=== PATIENT | male | born 1955 | race Caucasian/White ===

== ENCOUNTER 2019-05-29 13:27 | Emergency (ER) | payer BC, OTHER ==
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
[2019-06-05 15:37] VITALS: BP 142/69; PULSE 78
== END 2019-05-29 15:15 | disposition home or self-care (01) ==
LOC: DL.ED 13:27
DX: R22.0 Localized swelling, mass and lump, head (principal); L53.9 Erythematous condition, unspecified; Y04.0XXA Assault by unarmed brawl or fight, initial encounter; Y92.019 Unspecified place in single-family (private) house as the place of occurrence of the external cause; Y99.0 Civilian activity done for income or pay
CPT/HCPCS: 70486; 99284-25

== ENCOUNTER 2019-07-19 08:51 | Emergency (ER) | payer MEDICARE, OTHER ==
--- NOTE | 2019-07-19 09:08 | EDM.PDOC ---
ED HPI GENERAL MEDICAL PROBLEM - General Chief Complaint: Respiratory Problem Stated Complaint: COUGH Time Seen by Provider: 07/19/19 09:00 Source of Information: Reports: Patient, RN, RN Notes Reviewed History Limitations: Reports: No Limitations - History of Present Illness INITIAL COMMENTS - FREE TEXT/NARRATIVE: Has had a cough for the past 5 to [address] Lemus Sunday and put on Amoxicillin, no xrays or labs done. Doesn't feel he is getting better. Coughing up green sputum. Feels SOB and weak. Feels hot. Had temp of 99.8 in clinic Sunday but has not check temp at home. Feels hot all the time. States his oxygen level was 95% in clinic Sunday. Has had kids at home sick with cough too. Onset: Gradual Duration: Day(s): (4), Constant Location: Reports: Chest Quality: Reports: Ache Severity: Moderate Improves with: Reports: None Worsens with: Reports: Breathing (and Cough) Treatments [employer]: Reports: Other Medication(s) - Related Data Allergies Allergy/AdvReac Type Severity Reaction Status Date / Time No Known Allergies Allergy Verified 07/19/19 09:09 Home Meds: Home Meds Amoxicillin 500 mg PO BID 07/19/19 [History] Past Medical History - Past Health History Medical/Surgical History: Denies Medical/Surgical History HEENT History: Reports: None Cardiovascular History: Reports: None Respiratory History: Reports: Bronchitis, Recurrent Gastrointestinal History: Reports: None Genitourinary History: Reports: None Musculoskeletal History: Reports: Other (See Below) Other Musculoskeletal History: disc disease - steroid shots x 2 Neurological History: Reports: None Psychiatric History: Reports: None Endocrine/Metabolic History: Reports: None Hematologic History: Reports: None Immunologic History: Reports: None Oncologic (Cancer) History: Reports: None Dermatologic History: Reports: None - Infectious Disease History Infectious Disease History: Reports: Measles - Past Surgical History Musculoskeletal Surgical History: Reports: Shoulder Surgery Social & Family History - Family History Family Medical History: Noncontributory - Caffeine Use Caffeine Use: Reports: Coffee - Living Situation & Occupation Living situation: Reports: with Family Occupation: Employed ED ROS GENERAL - Review of Systems Review Of Systems: Comprehensive ROS is negative, except as noted in HPI. ED EXAM, GENERAL - Physical Exam Exam: See Below Exam Limited By: No Limitations General Appearance: Alert, WD/WN, No Apparent Distress Eye Exam: Bilateral Eye: Normal Inspection Nose: No Blood, Nasal Drainage (small amt. of clear nasal mucus) Throat/Mouth: Normal Inspection, Normal Lips, Normal Teeth, Normal Gums, Normal Oropharynx, Normal Voice, No Airway Compromise Head: Atraumatic, Normocephalic Neck: Normal Inspection, Supple, Non-Tender, Full Range of Motion Respiratory/Chest: No Respiratory Distress, No Accessory Muscle Use, Crackles, Wheezing (mild). No: Rales, Rhonchi Cardiovascular: Regular Rate, Rhythm, No Edema Back Exam: Normal Inspection Extremities: Normal Inspection, Normal Range of Motion, Non-Tender, Normal Capillary Refill, No Pedal Edema Neurological: Alert, Oriented, No Motor/Sensory Deficits Psychiatric: Normal Mood Skin Exam: Warm, Dry, Intact, Normal Color, No Rash Course - Vital Signs Last Recorded V/S: Last Vital Signs Temp 98.7 F 07/19/19 08:54 Pulse 83 07/19/19 08:54 Resp 20 07/19/19 08:54 BP 139/68 07/19/19 08:54 Pulse Ox 96 07/19/19 08:54 - Orders/Labs/Meds Orders: Active Orders 24 hr Category Date Time Status Chest 2V [CR] Stat Exams 07/19/19 09:04 Ordered Labs: Laboratory Tests 07/19/19 07/19/19 Range/Units 09:11 09:11 WBC 8.8 (5.0-10.0) 10^3/uL RBC 4.44 L (4.6-6.2) 10^6/uL Hgb 13.5 L (14.0-18.0) g/dL Hct 40.8 (40.0-54.0) % MCV 91.9 (80-100) fL MCH 30.4 (27.0-34.0) pg MCHC 33.1 (33.0-35.0) g/dL Plt Count 301 D (150-450) 10^3/uL Neut % (Auto) 83.8 H (42.2-75.2) % Lymph % (Auto) 7.0 L (20.5-50.1) % [place] % (Auto) 8.7 H (2-8) % Eos % (Auto) 0.3 L (1.0-3.0) % Baso % (Auto) 0.2 (0.0-1.0) % Lactic Acid 2.1 H* (0.5-2.0) mmol/L Influenza A: POSITIVE Influenza B: negative - Radiology Interpretation Free Text/Narrative:: CXR: no focal infiltrates, see Rad. report. Departure - Departure Time of Disposition: 09:58 Disposition: Home, Self-Care 01 Condition: Good Clinical Impression: Influenza A - Discharge Information *PRESCRIPTION DRUG MONITORING PROGRAM REVIEWED*: Not Applicable *COPY OF PRESCRIPTION DRUG MONITORING REPORT IN PATIENT RONALD: Not Applicable Instructions: Influenza, Adult, [id number] Forms: ED Department Discharge Additional Instructions: Rx: Tessalon Perles 200mg Rx: Albuterol Nebulizer Solution 2.5mg/3ml Follow up in clinic in not improving in 7 to 10 days. Return to ER if any breathing difficulties develop. Sepsis Event Note - Focused Exam Vital Signs: Vital Signs Temp Pulse Resp BP Pulse Ox 07/19/19 08:54 98.7 F 83 20 139/68 96 Date Exam was Performed: 07/19/19 Time Exam was Performed: 09:56 - My Orders Last 24 Hours: My Active Orders 07/19/19 09:04 Chest 2V [CR] Stat - Assessment/Plan Last 24 Hours: My Active Orders 07/19/19 09:04 Chest 2V [CR] Stat
[2019-07-19 09:09] VITALS: BP 139/68; PULSE 83
== END 2019-07-19 10:10 | disposition home or self-care (01) ==
LOC: DL.ED 08:51
DX: J10.1 Influenza due to other identified influenza virus with other respiratory manifestations (principal)
CPT/HCPCS: 36415; 71046; 83605; 85025; 87804; 99285-25

== ENCOUNTER 2020-06-04 17:35 | Emergency (ER) | payer OTHER ==
[2020-06-04 17:47] VITALS: BP 153/74; PULSE 99
--- NOTE | 2020-06-04 18:01 | EDM.PDOC ---
ED HPI GENERAL MEDICAL PROBLEM - General Chief Complaint: Respiratory Problem Stated Complaint: RIGHT SIDE MIDDLE TORSO PAIN GOING TO BACK Time Seen by Provider: 06/04/20 17:59 Source of Information: Reports: Patient History Limitations: Reports: No Limitations - History of Present Illness INITIAL COMMENTS - FREE TEXT/NARRATIVE: coughing past 2 weeks and been using neb at home and is feeling somewhat better but past 2 days right side of chest been hurting alot when coughs. Right Thoracic Pain Score (Numeric/FACES): 2 - Related Data Allergies Allergy/AdvReac Type Severity Reaction Status Date / Time No Known Allergies Allergy Verified 06/04/20 17:47 Home Meds: Home Meds . [No Known Home Meds] 06/04/20 [History] Past Medical History - Past Health History Medical/Surgical History: Denies Medical/Surgical History HEENT History: Reports: None Cardiovascular History: Reports: None Respiratory History: Reports: Bronchitis, Recurrent Gastrointestinal History: Reports: None Genitourinary History: Reports: None Musculoskeletal History: Reports: Other (See Below) Other Musculoskeletal History: disc disease - steroid shots x 2 Neurological History: Reports: None Psychiatric History: Reports: None Endocrine/Metabolic History: Reports: None Hematologic History: Reports: None Immunologic History: Reports: None Oncologic (Cancer) History: Reports: None Dermatologic History: Reports: None - Infectious Disease History Infectious Disease History: Reports: Measles - Past Surgical History Head Surgeries/Procedures: Reports: None Musculoskeletal Surgical History: Reports: Shoulder Surgery Other Musculoskeletal Surgeries/Procedures:: bilat. rotator cuff Social & Family History - Family History Family Medical History: No Pertinent Family History - Tobacco Use Tobacco Use Status *Q: Never Tobacco User Second Hand Smoke Exposure: No - Caffeine Use Caffeine Use: Reports: Coffee - Recreational Drug Use Recreational Drug Use: No - Living Situation & Occupation Living situation: Reports: with Family Occupation: Employed ED ROS GENERAL - Review of Systems Review Of Systems: Comprehensive ROS is negative, except as noted in HPI. ED EXAM, GENERAL - Physical Exam Exam: See Below Exam Limited By: No Limitations General Appearance: Alert, WD/WN, Mild Distress, Other (discomfort) Ears: Hearing Grossly Normal Throat/Mouth: Normal Voice, No Airway Compromise Head: Atraumatic Neck: Non-Tender, Full Range of Motion Respiratory/Chest: No Respiratory Distress, No Accessory Muscle Use, Rhonchi. No: Decreased Breath Sounds Cardiovascular: Regular Rate, Rhythm GI/Abdominal: Soft, Non-Tender (Male) Exam: Deferred Rectal (Males) Exam: Deferred Neurological: Alert, Oriented, Normal Cognition, Normal Gait, No Motor/Sensory Deficits Psychiatric: Flat Affect Skin Exam: Warm, Dry, Normal Color Lymphatic: No Adenopathy Course - Vital Signs Last Recorded V/S: Last Vital Signs Temp 37.5 C 06/04/20 17:41 Pulse 99 06/04/20 17:41 Resp 18 06/04/20 17:41 BP 153/74 H 06/04/20 17:41 Pulse Ox 97 06/04/20 17:41 - Orders/Labs/Meds Labs: Laboratory Tests 06/04/20 06/04/20 06/04/20 Range/Units 17:53 19:20 19:20 WBC 7.1 (5.0-10.0) 10^3/uL RBC 4.62 (4.6-6.2) 10^6/uL Hgb 14.5 (14.0-18.0) g/dL Hct 42.3 (40.0-54.0) % MCV 91.6 (80-100) fL MCH 31.4 (27.0-34.0) pg MCHC 34.3 (33.0-35.0) g/dL Plt Count 273 (150-450) 10^3/uL Neut % (Auto) 64.4 (42.2-75.2) % Lymph % (Auto) 17.3 L (20.5-50.1) % [place] % (Auto) 13.2 H (2-8) % Eos % (Auto) 4.5 H (1.0-3.0) % Baso % (Auto) 0.6 (0.0-1.0) % D-Dimer, Quantitative < 100 (0-400) ng/mL Sodium (136-145) mmol/L Potassium (3.5-5.1) mmol/L Chloride (98-107) mmol/L Carbon Dioxide (21-32) mmol/L Anion Gap (7-13) mEq/L BUN (7-18) mg/dL Creatinine (0.70-1.30) mg/dL Est Cr Clr Drug Dosing mL/min Estimated GFR (MDRD) BUN/Creatinine Ratio (No establ ref range) Glucose (74-99) mg/dL Lactic Acid (0.4-2.0) mmol/L Calcium (8.5-10.1) mg/dL Total Bilirubin (0.2-1.0) mg/dL AST (15-37) U/L ALT (16-63) U/L Alkaline Phosphatase (46-116) U/L Total Protein (6.4-8.2) g/dL Albumin (3.4-5.0) g/dL Globulin Albumin/Globulin Ratio SARS-CoV-2 RNA (JOVANI) Positive H (NEGATIVE) 06/04/20 06/04/20 Range/Units 19:20 19:20 WBC (5.0-10.0) 10^3/uL RBC (4.6-6.2) 10^6/uL Hgb (14.0-18.0) g/dL Hct (40.0-54.0) % MCV (80-100) fL MCH (27.0-34.0) pg MCHC (33.0-35.0) g/dL Plt Count (150-450) 10^3/uL Neut % (Auto) (42.2-75.2) % Lymph % (Auto) (20.5-50.1) % [place] % (Auto) (2-8) % Eos % (Auto) (1.0-3.0) % Baso % (Auto) (0.0-1.0) % D-Dimer, Quantitative (0-400) ng/mL Sodium 140 (136-145) mmol/L Potassium 4.0 (3.5-5.1) mmol/L Chloride 105 (98-107) mmol/L Carbon Dioxide 27 (21-32) mmol/L Anion Gap 12.0 (7-13) mEq/L BUN 10 (7-18) mg/dL Creatinine 1.18 (0.70-1.30) mg/dL Est Cr Clr Drug Dosing 59.58 mL/min Estimated GFR (MDRD) > 60 BUN/Creatinine Ratio 8.5 (No establ ref range) Glucose 91 (74-99) mg/dL Lactic Acid 0.8 (0.4-2.0) mmol/L Calcium 8.6 (8.5-10.1) mg/dL Total Bilirubin 0.7 (0.2-1.0) mg/dL AST 17 (15-37) U/L ALT 25 (16-63) U/L Alkaline Phosphatase 97 (46-116) U/L Total Protein 7.5 (6.4-8.2) g/dL Albumin 4.0 (3.4-5.0) g/dL Globulin 3.5 Albumin/Globulin Ratio 1.1 SARS-CoV-2 RNA (JOVANI) (NEGATIVE) - Re-Assessments/Exams Free Text/Narrative Re-Assessment/Exam: 06/04/20 20:48 results discussed with pt. Departure - Departure Time of Disposition: 20:48 Disposition: Home, Self-Care 01 Condition: Good Clinical Impression: Acute bronchitis due to COVID-19 virus - Discharge Information Instructions: Prevent the Spread of COVID-19 if You Are Sick - CDC Forms: ED Department Discharge Additional Instructions: 1) rest and sleep as much as possible 2) self quarantine for at least 2 weeks 3) continue neb treatment daily 4) recheck if feels worse rx given; medrol dospak duoneb tid prn tessalon pearle 100mg bid prn cough x 12 Sepsis Event Note (ED) - Evaluation Sepsis Screening Result: No Definite Risk - Focused Exam Vital Signs: Vital Signs Temp Pulse Resp BP Pulse Ox 06/04/20 17:41 37.5 C 99 18 153/74 H 97
[2020-06-04 19:54] LABS: CHLORIDE,CL 105 mmol/L (98-107); SODIUM,NA 140 mmol/L (136-145)
--- NOTE | 2020-06-04 20:45 | CR ---
PROCEDURE INFORMATION: Exam: XR Chest, 1 View Exam date and time: 06/04/2020 8:29 PM Age: 65 years old Clinical indication: Cough; Additional info: Pos covid cough TECHNIQUE: Imaging protocol: XR of the chest Views: 1 view. COMPARISON: CR Chest 2V 07/19/2019 9:14 AM FINDINGS: Lungs: No suspicious pulmonary nodules or areas of lung consolidation. Pleural space: Costophrenic angles are sharp. No pneumothorax. Heart/Mediastinum: Unremarkable. No cardiomegaly. Bones/joints: Age appropriate. IMPRESSION: 1. No active disease of the chest. 2. No significant interval change when compared to the CR Chest 2V 07/19/2019 9:14 AM.
== END 2020-06-04 20:55 | disposition home or self-care (01) ==
LOC: DL.ED 17:35
DX: U07.1 COVID-19 (principal); J20.9 Acute bronchitis, unspecified
CPT/HCPCS: 36415; 71045; 80053; 83605; 85025; 85379; 99283; 99283-25; U0002

== ENCOUNTER 2020-06-10 11:11 | Inpatient (IN) | payer OTHER, MEDICARE ==
[2020-06-10] MEDS ORDERED: Ondansetron 4 MG Tab.DIS PO PRN (11:31)
[2020-06-10] MEDS ORDERED: Docusate Sodium 100 MG Cap PO PRN (11:31)
[2020-06-10] MEDS ORDERED: oxyCODONE 5 MG Tab PO PRN (11:31)
[2020-06-10] MEDS ORDERED: Iopamidol 755 Mg/ML 100 ML Bottle IVPUSH ONE (12:03)
[2020-06-10] MEDS: cefTRIAXone 1 GM in Sodium Chloride 0.9% 50 ML IV SCH (12:43)
[2020-06-10] MEDS: Dexamethasone 4 MG/ML SDV IVPUSH SCH (12:43)
[2020-06-10] MEDS: Sodium Chloride 0.9% 1,000 ML IV SCH (12:44)
[2020-06-10 12:49] LABS: ANION GAP 13.1 mEq/L (7-13); CHLORIDE,CL 100 mmol/L (98-107); SODIUM,NA 138 mmol/L (136-145)
--- NOTE | 2020-06-10 12:51 | HP ---
CONTINUATION: I spoke with the patient and provided information about remdesivir treatment as being under emergency use authorization and not fully FDA approved or reviewed. I discussed potential side effects including liver abnormalities and also discussed other potential treatment options that are currently not FDA approved to treat COVID-19. The patient gives permission for remdesivir. [facility] /[id number]
--- NOTE | 2020-06-10 13:08 | HP ---
CHIEF COMPLAINT: Hypoxemia. HISTORY OF PRESENT ILLNESS: The patient is a 65-year-old male with no significant past medical history except for some disk disease of the LS spine, was admitted directly from [facility] because of COVID pneumonia and hypoxemia. The patient started some nonproductive cough with body aches and fever and chills on June 03 and he was seen in the emergency room on June 04, and he tested positive for COVID and he was treated with Medrol Dosepak for COVID bronchitis and he was seen at [id number] on June 08 and was also given Zithromax, Z-Oniel, as well as Vantin. He had a followup today at the clinic and now his saturation is 85% on room air. He is still complaining of cough and some chest discomfort with coughing spells. The patient denies though any orthopnea, PND, pedal edema, diarrhea, nor any other associated symptoms, and because of the above and the COVID pneumonia and hypoxemia, he was then admitted for further evaluation and management. PAST MEDICAL HISTORY: Remarkable for disk disease of the LS spine, otherwise unremarkable. FAMILY HISTORY: Noncontributory. SOCIAL HISTORY: The patient is . Nonsmoker, nonalcohol drinker. REVIEW OF SYSTEMS: As in HPI. The rest of the review of systems is negative. HOME MEDICATIONS: None except for the recent Z-Oniel and Vantin and Medrol Dosepak. ALLERGIES: No known drug allergies. PHYSICAL EXAMINATION: General: The patient is very pleasant. He is alert and oriented, not in any acute respiratory distress. Vital Signs: Blood pressure is 149/75, pulse of 103, respirations of 20, temperature of 98.4, saturation is 90% on 2.5 L per nasal cannula. SHEENT: Normocephalic. There are pink palpebral conjunctivae. Sclerae anicteric. Neck: No JVD. No lymphadenopathy. Heart: Regular rate and rhythm. Normal S1 and S2. No gallops. No rubs. Lungs: Has diminished breath sounds on both bases with faint crackles bilaterally. No wheezing. Abdomen: Mild to moderately obese, otherwise soft, nontender. Bowel sounds positive. Extremities: Negative for any pedal edema. No calf tenderness. ADMITTING DIAGNOSES: 1. COVID pneumonia. 2. Hypoxemia. TREATMENT PLAN: The patient is going to be admitted to isolation, acute medical floor. He will be empirically started on IV antibiotics. He will be on IV dexamethasone. We have also discussed Remdesivir and convalescent plasma with the patient and he is agreeable to this. The rest of the management as necessary. The patient is full code. [facility] /[id number]
[2020-06-10] MEDS: Benzonatate 100 MG Cap PO PRN (14:31)
[2020-06-10] MEDS: Azithromycin 500 MG in Sodium Chloride 0.9% 250 ML IV SCH (14:31)
[2020-06-10] MEDS: Enoxaparin 40 MG/0.4 ML Syringe SUBCUT SCH (14:31)
--- NOTE | 2020-06-10 14:41 | CT ---
PROCEDURE INFORMATION: Exam: CT Chest With Contrast; Diagnostic Exam date and time: 06/10/2020 1:44 PM Age: 65 years old Clinical indication: Other: Hypoxia; Additional info: Hypoxia, pe study TECHNIQUE: Imaging protocol: Diagnostic computed tomography of the chest with intravenous contrast. Radiation optimization: All CT scans at this facility use at least one of these dose optimization techniques: automated exposure control; mA and/or kV adjustment per patient size (includes targeted exams where dose is matched to clinical indication); or iterative reconstruction. Contrast material: ISOVUE 370; Contrast volume: 76 ml; Contrast route: INTRAVENOUS (IV); COMPARISON: CR Chest 1V Frontal 06/04/2020 8:29 PM FINDINGS: Limitations: None. Tracheobronchial tree: Normal. Lungs: Similar peripheral geometric shaped regions of ground-glass lung opacification involving all lung segments. Bilateral lower lobe lung atelectasis. The tracheobronchial tree is normal. Pleural space: No pneumothorax or pleural effusion. Heart: Normal dimensions. No pericardial effusion. Coronary arteries: Normal. Aorta: Normal. Lymph nodes: No enlarged axillary, mediastinal or hilar lymph nodes. Bones/joints: No acute fracture or suspicious osseous lesion. Soft tissues: Normal. IMPRESSION: 1. Negative for pulmonary arterial embolism. 2. Diffuse bilateral lung infiltrates/pneumonia. Commonly reported imaging features of COVID-19 pneumonia are present. Other processes such as influenza pneumonia and organizing pneumonia, as can be seen with drug toxicity and connective tissue disease, can cause a similar imaging pattern. (Reference: Kelechi) References: Kelechi Cochran et al., Radiological Society of [place] Expert Consensus Statement on Reporting Chest CT Findings Related to COVID-19. Endorsed by the Society of Thoracic Radiology, the [place] [employer], and RSNA. Published September 03, 2019.
[2020-06-10] MEDS: Mometasone Furoate Powder 220 MCG/Puff 14 Dose Inhaler INH SCH (17:09)
[2020-06-10] MEDS: Albuterol 6.7 GM Inhaler INH SCH ×2 (17:10→20:22)
[2020-06-10] MEDS ORDERED: REMDESIVIR 200 MG in Sodium Chloride 0.9% 250 ML IV ONE (20:00)
[2020-06-11] MEDS: Benzonatate 100 MG Cap PO PRN (02:03)
[2020-06-11] MEDS: Acetaminophen 325 MG Tab PO PRN ×2 (02:07→06:23)
[2020-06-11] MEDS: Sodium Chloride 0.9% 1,000 ML IV SCH ×2 (04:20→19:14)
[2020-06-11] MEDS: Albuterol 6.7 GM Inhaler INH SCH ×4 (06:25→20:51)
[2020-06-11] MEDS: Mometasone Furoate Powder 220 MCG/Puff 14 Dose Inhaler INH SCH ×2 (06:26→17:20)
[2020-06-11 07:08] LABS: ANION GAP 12.1 mEq/L (7-13); CHLORIDE,CL 102 mmol/L (98-107); SODIUM,NA 137 mmol/L (136-145)
[2020-06-11] MEDS: Dexamethasone 4 MG/ML SDV IVPUSH SCH (08:37)
[2020-06-11] MEDS: Enoxaparin 40 MG/0.4 ML Syringe SUBCUT SCH (08:37)
[2020-06-11] MEDS: cefTRIAXone 1 GM in Sodium Chloride 0.9% 50 ML IV SCH (12:13)
[2020-06-11] MEDS: Azithromycin 500 MG in Sodium Chloride 0.9% 250 ML IV SCH (13:24)
[2020-06-11] MEDS: REMDESIVIR 100 MG in Sodium Chloride 0.9% 100 ML IV SCH (19:16)
[2020-06-12] MEDS: Albuterol 6.7 GM Inhaler INH SCH ×5 (05:57→20:26)
[2020-06-12] MEDS: Mometasone Furoate Powder 220 MCG/Puff 14 Dose Inhaler INH SCH ×2 (05:59→17:27)
[2020-06-12] MEDS: Dexamethasone 4 MG/ML SDV IVPUSH SCH (08:51)
[2020-06-12] MEDS: Enoxaparin 40 MG/0.4 ML Syringe SUBCUT SCH (08:51)
--- NOTE | 2020-06-12 11:15 | PN ---
DATE: 06/12/2020 SUBJECTIVE: The patient still has coughing spells and episodes, and the patient is still requiring oxygen to keep his saturation above 90%, but he denies any worsening of shortness of breath. Denies any chest pain. Overall, patient slowly improving. OBJECTIVE: Vital Signs: Blood pressure is 122/73, pulse of 82, respirations of 16, temperature of 98.8, saturation is 92% on 40% O2 flow rate and 65 FiO2. Heart: Regular rate and rhythm. Normal S1 and S2. No gallops. No rubs. Lungs: Diminished breath sounds on both bases, but no crackles, no wheezing. Abdomen: Moderately obese, soft, nontender. Bowel sounds positive. Extremities: Negative for any pedal edema. No calf tenderness. MEDICATIONS: Reviewed. PLAN: We will continue with his present management including IV azithromycin, ceftriaxone, and dexamethasone as well as Remdesivir. We will recheck a CBC and comp panel in a.m. [facility] /[id number] MICHELLE
[2020-06-12] MEDS: cefTRIAXone 1 GM in Sodium Chloride 0.9% 50 ML IV SCH (14:47)
[2020-06-12] MEDS: Azithromycin 500 MG in Sodium Chloride 0.9% 250 ML IV SCH (15:35)
[2020-06-12] MEDS: REMDESIVIR 100 MG in Sodium Chloride 0.9% 100 ML IV SCH (20:09)
[2020-06-13] MEDS: Albuterol 6.7 GM Inhaler INH SCH ×4 (06:26→21:53)
[2020-06-13] MEDS: Mometasone Furoate Powder 220 MCG/Puff 14 Dose Inhaler INH SCH ×2 (06:27→17:05)
[2020-06-13 07:05] LABS: ANION GAP 14.2 mEq/L (7-13); CHLORIDE,CL 102 mmol/L (98-107); SODIUM,NA 141 mmol/L (136-145)
[2020-06-13] MEDS: Enoxaparin 40 MG/0.4 ML Syringe SUBCUT SCH (08:48)
[2020-06-13] MEDS: Dexamethasone 4 MG/ML SDV IVPUSH SCH (08:48)
[2020-06-13] MEDS: cefTRIAXone 1 GM in Sodium Chloride 0.9% 50 ML IV SCH (12:34)
[2020-06-13] MEDS: Azithromycin 500 MG in Sodium Chloride 0.9% 250 ML IV SCH (13:37)
[2020-06-13] MEDS: Sodium Chloride 0.9% 10 ML Syringe FLUSH PRN ×5 (21:47→23:26)
[2020-06-13] MEDS: REMDESIVIR 100 MG in Sodium Chloride 0.9% 100 ML IV SCH (21:48)
--- NOTE | 2020-06-14 07:02 | PN ---
DATE: 06/11/2020 SUBJECTIVE: The patient is doing fairly well this morning. He is feeling slightly better as compared to yesterday. The patient denies any worsening of shortness of breath and denies any chest pain, abdominal pain, nor any other complaints. LABORATORY DATA: Lab workup this morning; WBC is 14.8, hemoglobin is 12.4, hematocrit is 36.8, platelet is 282. Comp panel: Glucose is 109, calcium 8.2, albumin is 2.5. The rest of the panel unremarkable. OBJECTIVE: VITAL SIGNS: Blood pressure is 130/83, pulse of 82, respiration of 18, temperature of 99.1, saturation is 92% on 7 L per nasal cannula. HEART: Regular rate and rhythm. Normal S1 and S2. No gallops. No rubs. LUNGS: Diminished breath sounds on both bases with coarse breath sounds, but no significant crackles. ABDOMEN: Soft and nontender. Bowel sounds positive. EXTREMITIES: Negative for any pedal edema. No calf tenderness. MEDICATIONS: Reviewed. PLAN: We will continue with his present management including IV ceftriaxone, azithromycin, IV dexamethasone, and remdesivir. [facility] /[id number]
--- NOTE | 2020-06-14 08:47 | PN ---
DATE: 06/13/2020 SUBJECTIVE: The patient is doing fairly well. The patient still has some mild coughing spell and still has desaturation with moderate activity and he is still requiring oxygen to keep his saturation above 90, but the patient denies any chest pain, orthopnea, PND, fever, chills, or any other complaints. LABORATORY DATA: Lab workup this morning, CBC; WBC 11.1, hemoglobin is 13.1, hematocrit is 39.1, platelet is 343. Comp panel; calcium was 8.4, AST of 71, total protein of 2.6. The rest of the panel unremarkable. OBJECTIVE: VITAL SIGNS: Blood pressure is 135/76, pulse 65, respirations of 24, temperature of 98.4, saturation is 96% on 40 oxygen flow rate and 78 FiO2. HEART: Regular rate and rhythm. Normal S1 and S2. No gallops. No rubs. LUNGS: Equal bilaterally. No crackles. No wheezing. ABDOMEN: Soft, nontender. Bowel sounds positive. EXTREMITIES: Negative for any pedal edema. No calf tenderness. MEDICATIONS: Reviewed. PLAN: We will continue with his present management including the IV antibiotics, remdesivir, and dexamethasone, and continue with DVT prophylaxis. The patient will be getting his convalescent plasma tomorrow. [facility] /[id number]
[2020-06-14] MEDS: Mometasone Furoate Powder 220 MCG/Puff 14 Dose Inhaler INH SCH ×2 (09:47→17:46)
[2020-06-14] MEDS: Albuterol 6.7 GM Inhaler INH SCH ×4 (09:48→22:08)
[2020-06-14] MEDS: Dexamethasone 4 MG/ML SDV IVPUSH SCH (09:53)
[2020-06-14] MEDS: Enoxaparin 40 MG/0.4 ML Syringe SUBCUT SCH (09:57)
[2020-06-14] MEDS: cefTRIAXone 1 GM in Sodium Chloride 0.9% 50 ML IV SCH (12:29)
[2020-06-14] MEDS: Azithromycin 500 MG in Sodium Chloride 0.9% 250 ML IV SCH (13:18)
--- NOTE | 2020-06-14 14:37 | PN ---
DATE: 06/14/2020 SUBJECTIVE: The patient continues to do well, and he is feeling much better, although he is still needing oxygen to keep his saturation above 90. He will be getting his convalescent plasma today. The patient denies any chest pain, worsening of shortness of breath, abdominal pain, or any other complaints. OBJECTIVE: Vital Signs: Blood pressure is 110/66, pulse of 67, respirations of 18, temperature of 98.5, and saturation is 92% on 40 flow rate and FiO2 of 75. Heart: Regular rate and rhythm. Normal S1 and S2. No gallops. No rubs. Lungs: With diminished breath sounds on both bases. No crackles. No wheezing. Abdomen: Soft, nontender. Bowel sounds positive. Extremities: Negative for any pedal edema. No calf tenderness. PLAN: Medications reviewed. We will continue with his present IV antibiotics and IV ceftriaxone and IV dexamethasone. He will be done with his remdesivir today, and he will also be getting his convalescent plasma and if the patient continues to do well, anticipate discharge tomorrow. [facility] /[id number]
[2020-06-14] MEDS: REMDESIVIR 100 MG in Sodium Chloride 0.9% 100 ML IV SCH (22:07)
[2020-06-14] MEDS: Sodium Chloride 0.9% 10 ML Syringe FLUSH PRN (23:06)
[2020-06-15] MEDS: Albuterol 6.7 GM Inhaler INH SCH ×2 (06:24→12:04)
[2020-06-15] MEDS: Mometasone Furoate Powder 220 MCG/Puff 14 Dose Inhaler INH SCH (06:26)
[2020-06-15 07:10] LABS: ANION GAP 11.4 mEq/L (7-13); CHLORIDE,CL 103 mmol/L (98-107); SODIUM,NA 140 mmol/L (136-145)
[2020-06-15] MEDS: Dexamethasone 4 MG/ML SDV IVPUSH SCH (09:01)
[2020-06-15] MEDS: Enoxaparin 40 MG/0.4 ML Syringe SUBCUT SCH (09:02)
--- NOTE | 2020-06-15 11:45 | DISCH ---
FINAL DIAGNOSES: 1. COVID pneumonia. 2. Hypoxemia. BRIEF HISTORY OF PRESENT ILLNESS: The patient is a 65-year-old male, who was admitted from [facility] because of COVID pneumonia and hypoxemia. PERTINENT LABS, X-RAY AND OTHER TESTS ON ADMISSION: CAT scan of the chest showed diffuse bilateral lung infiltrates, pneumonia, compatible with COVID-19 pneumonia. There is no pulmonary embolism. Blood cultures x2 is negative. CBC on admission; WBC is 13.6, hemoglobin is 13.9, hematocrit 41.2, platelets are 286. D-dimer is 108. Comp panel; glucose is 101, albumin is 3.2, the rest of the panel unremarkable. LAB WORKUP ON DISCHARGE: 06/15/2020; WBC is 13.1, hemoglobin is 12.8, hematocrit is 38.4, platelets are 338. Comp panel; glucose is 100, ALT of 86, albumin is 2.7. The rest of the panel unremarkable. HOSPITAL COURSE: The patient was admitted to [facility] General Medicine floor and the patient was empirically started on IV antibiotics with azithromycin and Rocephin. The patient was also given IV dexamethasone and remdesivir, and also convalescent plasma. He was placed on bronchodilator and inhaled steroids as well as Lovenox for DVT prophylaxis. The patient did well. He felt much better and oxygen saturation improved, but he is still requiring 4 L of oxygen per nasal cannula to keep his saturation above 90. He was subsequently discharged on 4 L per nasal cannula to keep his saturation above 90, and he will be continued on azithromycin 250 mg daily for the next 5 days as well as dexamethasone 6 mg daily for the next 5 days. He is going to follow up with me in 7 to 10 days for recheck postop hospitalization. [facility] /[id number]
[2020-06-15 12:03] VITALS: BP 123/75; PULSE 82
--- NOTE | 2020-06-15 12:55 | PN ---
DATE: 06/15/2020 SUBJECTIVE: The patient continues to do well. He is feeling much better and he would like to go home. I did mention to the patient that he is still requiring 4 L of oxygen per nasal cannula, but he mentioned that he has oxygen at home that he can use. He denies though any fever, chills, chest pain, shortness of breath, abdominal pain, or any other complaints. LABORATORY DATA: Lab workup this morning, CBC; WBC 13.1, hemoglobin is 12.8, hematocrit is 38.4, platelet is 338. Chem-6; glucose is 100, ALT of 86. The rest of the comp panel unremarkable. OBJECTIVE: Vital Signs: Blood pressure is 110/64, pulse 75, respirations 20, temperature of 97.9, and saturation is 91% on 4 L per nasal cannula. Heart: Regular rate and rhythm. Normal S1 and S2. No gallops. No rubs. Lungs: Equal bilaterally. No crackles. No wheezing. Abdomen: Moderately obese, soft, nontender. Bowel sounds positive. Extremities: Negative for any pedal edema. No calf tenderness. PLAN: We will discharge the patient home today. We will continue with oral antibiotics and oral dexamethasone for the next 5 days and the patient would like to follow up with me at the clinic post hospitalization. We will schedule him for this. [facility] /[id number]
[2020-06-15] MEDS: cefTRIAXone 1 GM in Sodium Chloride 0.9% 50 ML IV SCH (13:31)
[2020-06-15] MEDS: Azithromycin 500 MG in Sodium Chloride 0.9% 250 ML IV SCH (14:04)
== END 2020-06-15 14:44 | disposition home or self-care (01) | DRG 177 ==
LOC: UNDOADMIN 11:14 → DL.MS 11:14
PROVIDERS: ADMIT Internal Medicine; ATTEND Internal Medicine
PROC: 8E0ZXY6 Isolation (ICD-10-PCS; principal; 2020-06-10)
PROC: XW033E5 Introduction of Remdesivir Anti-infective into Peripheral Vein, Percutaneous Approach, New Technology Group 5 (ICD-10-PCS; 2020-06-10)
PROC: XW033F5 Introduction of Other New Technology Therapeutic Substance into Peripheral Vein, Percutaneous Approach, New Technology Group 5 (ICD-10-PCS; 2020-06-10)
PROC: XW13325 Transfusion of Convalescent Plasma (Nonautologous) into Peripheral Vein, Percutaneous Approach, New Technology Group 5 (ICD-10-PCS; 2020-06-10)
DX: U07.1 COVID-19 (principal); J12.82 Pneumonia due to coronavirus disease 2019; R09.02 Hypoxemia
CPT/HCPCS: 36415; 36430; 71260; 80053; 85025; 85379; 86900; 86901; 87040; 94010; 94060; 94660; 99221; 99232; 99238; A9270-GY; J0456; J0696; J1100; J1650; J7030; J7050; P9017; Q9967

== ENCOUNTER 2025-02-06 05:19 | Day surgery (SDC) | payer MEDICARE ==
[2025-02-06] MEDS: Lactated Ringers 1,000 ML IV SCH (05:43)
[2025-02-06] MEDS ORDERED: Propofol 200 MG/20 ML SDV ONE (05:46)
[2025-02-06 07:46] VITALS: BP 124/77; PULSE 77
== END 2025-02-06 07:45 | disposition home or self-care (01) ==
LOC: DL.ENDO 05:19
PROVIDERS: ATTEND Internal Medicine Gastroenterology
DX: Z12.11 Encounter for screening for malignant neoplasm of colon (principal); K64.4 Residual hemorrhoidal skin tags; K64.8 Other hemorrhoids; E66.9 Obesity, unspecified; Z68.34 Body mass index [BMI] 34.0-34.9, adult; Z79.899 Other long term (current) drug therapy
CPT/HCPCS: J7120